=== PATIENT | male | born 1995 | race Caucasian/White ===

== ENCOUNTER 2023-03-09 00:57 | Emergency (ER) | payer MEDICAID, SELFPAY ==
[2023-03-09 00:58] VITALS: BP 144/101; PULSE 82; RESP 18; TEMP 35.7; O2SAT 99; BMI 25.2
--- NOTE | 2023-03-09 01:25 | EX.ED.VIS.HA ---
HPI History of Present Illness Chief Complaint: Headache Informant: patient Onset/Context/Timing Onset: Today and Hours Context: Sudden Timing: Continuous Quality -Headache: Negative for Similar Prior Headaches Current Severity: Moderate Maximum Severity: Moderate Associated Symptoms/Injury Associated Symptoms: Positive for Nausea; Negative for Fever, Vomiting, Sore Throat, Sinus Pressure, Numbness, Tingling, Preceding Aura, Visual Changes, Blurred Vision, Photophobia or Visual Loss Injury - BARRIENTOS: Negative for Direct Trauma, Fall or Assault Narrative Narrative: 27-year-old male no seen past medical or surgical history. Says about an hour ago he had sudden onset of right-sided headache. No family history of intracranial bleeds or brain aneurysms or brain surgery. He denies any trauma. No fever. No sinusitis symptoms. He has no history of migraines or significant headaches. Denies anyone else at home having headaches. He denies any carbon monoxide exposure. Says he has some nausea with a headache. Denies weakness or numbness of his upper or lower extremities. Prior similar symptoms: No Recent Illness/Hospitalization: No PFSH PFSH Medical History no medical history no medical history Allergy/AdvReac Type Severity Reaction Status Date / Time No Known Allergies Allergy Verified 03/09/23 00:58 Surgical History no surgical history Social History Smoking Status: Current every day smoker tobacco type: cigarettes ROS ROS ED ROS Narrative Headache. Nausea. Review of Systems ROS Unobtainable: Denies due to encephalopathy Constitutional Constitutional ED: Denies chills or fever(s) Eyes Eyes: Denies blurry vision ENT ENT ED: Denies ear pain, rhinorrhea or sore throat Cardiovascular Cardiovascular: Denies chest pain or palpitations Respiratory/Chest Respiratory/Chest: Denies cough, dyspnea or dyspnea on exertion Gastrointestinal Gastrointestinal: Reports nausea; Denies abdominal pain, constipation, diarrhea, melena or vomiting Genitourinary Genitourinary ED: Denies dysuria or hematuria Musculoskeletal Musculoskeletal: Denies arthralgias Integumentary Denies abscess Neurologic Neurologic: Reports headache(s); Denies paresthesias or weakness Psychiatric Psychiatric: Denies anxiety Endocrine Endocrinology: Denies polydipsia, polyphagia or polyuria Hematologic/Lymphatic Hematologic/Lymphatic: Denies easy bleeding, easy bruising or lymphadenopathy Allergic/Immunologic Allergic/Immunologic ED: Denies tongue swelling or urticaria EXAM Physical Exam Narrative Exam Narrative: 26-year-old male right-sided headache. Normal exam. Nontender. No signs of trauma. Vital signs are stable afebrile. H EENT exam unremarkable. Pupils are reactive light. Facial droop. Normal speech. He does have a decayed right lower molar. There is no gingivitis. No abscess. Neck nontender. No meningismus. No lymphadenopathy. Lungs clear to auscultation. Heart regular rhythm no murmur. Rate about 80. Chest wall and ribs nontender. Abdomen soft nontender. Back nontender. Neurologically is awake alert no focal motor deficits. Normal rfid engineer strength. Normal fingertip to nose. Normal dorsi plantarflexion. NIH score is 0. Const Vital Signs: 03/09/23 00:58 Temperature 96.3 F L Temperature Source Temporal Pulse Rate 82 Respiratory Rate 18 Blood Pressure 144/101 H Blood Pressure Mean 115 Pulse Ox 99 Oxygen Delivery Method Room Air Positive well nourished and well developed; Negative for obese, cachectic, contractures or unkempt General Appearance ED: well developed and NAD; Negative for unkempt, cachectic, contractures, cyanotic or diaphoretic Nutritional Appearance: Negative for cachectic or obese HEENT Reports normocephalic and moist mucous membranes; Denies dry mucous membranes atraumatic; Negative for trauma, tenderness, temporal artery tenderness or vesicular rash Face and Sinus: Negative for sinus tenderness Mouth ED: No dry mucous membranes Mouth: No dry mucous membranes Eyes PERRL and EOMs intact bilaterally General Eye ED: Negative for pale conjunctiva or scleral icterus Neck no lymphadenopathy, supple, no meningeal signs and no JVD General: Negative for tenderness Resp normal respiratory effort and clear to auscultation bilaterally Effort and Inspection: Negative for retractions Auscultation: Negative for rales, rhonchi or wheezes Cardio regular rate, regular rhythm, S1 normal heart sound, S2 normal heart sound and no murmurs Rate: Negative for bradycardia or tachycardic Rhythm: Negative for abnormal rhythm GI non-tender and non-distended Auscultation: normoactive bowel sounds Palpation: soft; Negative for firm, tender, guarding or mass Back/Spine no CVA tenderness General Back: Negative for CVA tenderness Cervical Spine: Negative for cervical spine tenderness Thoracic Spine / Upper Back: Negative for thoracic spinal tenderness Lumbar Spine / Lower Back: Negative for lumbar spinal tenderness Extremity normal to inspection and full ROM General Extremety ED: Negative for edema, tenderness or other findings General Extremity: Negative for edema or other findings Neuro oriented x3, CN's II-XII intact bilaterally and no sensory deficits noted Sensorium / Orientation: awake, alert, oriented to person, oriented to place and oriented to time; Negative for orientation impaired, lethargic or stuporous Coordination / Balance: [id number] test normal Speech: speech normal Gait (Neuro): Negative for normal gait Motor Exam: strength 5/5 throughout Comatose: Negative for other Psych mental status grossly normal Appearance: Negative for unkempt Attitude: No agitated Mood & Affect: Negative for depressed, anxious, tearful or other Skin General Skin Exam: elasticity normal Lesions: no lesions Rashes: no rashes Trauma: Negative for abrasion MDM MDM MDM Narrative Medical decision making narrative: 27-year-old male right-sided headache. CAT scan and IV Toradol, fluids, Benadryl and Zofran. He is given normal neurologic exam. Repeat exam at 2:40 AM patient's headache is resolving. He is feeling better. His neurologic exam remains normal. He and I went over his CAT scan results. He is comfortable being discharged home. There is a female in the room skin taking him home. Tylenol Motrin for pain. Return if feeling worse. History & Record Review Discussion w/independent historian: Patient Additional record(s) reviewed:: Prior inpatient record, Prior outpatient record, Prior ED visit and Prior labs Radiography Diagnostic Testing: Clinical Impression(s) from Imaging Studies Brain CT 03/09/23 01:52 IMPRESSION: Negative head/brain CT without intravenous contrast. Electronically Signed: Christopher Aparicio MD at 2:13 EST , Discharge Plan Triage Chief Complaint: Headache ED Provider: Jeffrey Villalobos Dx/Rx/DC Orders Clinical Impression: Headache Instructions: ED Headache Unspecified Primary Care Provider: Care Physician,No Primary Referrals: Robbin Barrera MD [Med Staff - Warehouse Representative] - 3-5 Days if not improving Care Physician,No Primary [Primary Care Provider] - Activity Restrictions/Additional Instructions: Plenty of fluids and rest. Motrin and Tylenol for pain. Follow-up if not improving or return Emergency Department if feeling worse. Disposition Disposition: Home, Self Care
[2023-03-09] MEDS: DiphenhydrAMINE 50 MG/ML Syringe 25 MG IV (01:35)
[2023-03-09] MEDS: Ketorolac 30 MG/ML Syringe IV (01:35)
[2023-03-09] MEDS: 0.9% Normal Saline (1000mL) 1,000 ML 1000 ML IV (01:35)
[2023-03-09] MEDS: Ondansetron 4 MG/2 ML Vial IV (01:36)
--- NOTE | 2023-03-09 01:52 | CT_ITS ---
EXAM: CT HEAD WITHOUT INTRAVENOUS CONTRAST CLINICAL INDICATION: headache TECHNIQUE: Multiple axial images were obtained of the head without intravenous contrast. This CT exam was performed using one or more of the following dose reduction techniques: automated exposure control, adjustment of the mA and/or kV according to patient size, and/or use of iterative reconstruction technique. RADIATION DOSE: CTDIvol = 44.99 mGy, DLP = 846.73 mGy-cm COMPARISON: No relevant prior studies available. FINDINGS: BRAIN AND EXTRA-AXIAL SPACES: Unremarkable. No intra- or extra-axial hemorrhage. No evidence of acute infarct. No intracranial mass or mass effect. There is preservation of the [place]/white matter interface. Posterior fossa structures are unremarkable. Ventricles are appropriate for age. No hydrocephalus. Basal cisterns are patent. BONES/JOINTS: Unremarkable. No discrete lytic or blastic abnormalities. SINUSES: Unremarkable as visualized. Clear. MASTOID AIR CELLS: Unremarkable. Clear. ORBITS: Visualized globes, extraocular muscles, optic nerves and retrobulbar fat appear unremarkable. CT/Brain/Head without Contrast IMPRESSION: Negative head/brain CT without intravenous contrast. Electronically Signed: Christopher Aparicio MD at 2:13 EST ,
[2023-03-09 02:51] VITALS: BP 129/67; PULSE 67; RESP 16; TEMP 36.8; O2SAT 98
== END 2023-03-09 02:57 | disposition home or self-care (01) ==
PROVIDERS: Emergency Provider Emergency Medicine; Visit Provider Emergency Medicine
DX: R51.9 Headache, unspecified (principal); R11.0 Nausea; F17.210 Nicotine dependence, cigarettes, uncomplicated
CPT/HCPCS: 70450; 96361; 96374; 96375; 99283; J7030; J2405

== ENCOUNTER 2023-07-21 20:45 | Emergency (ER) | payer MEDICAID, SELFPAY ==
[2023-07-21 20:46] VITALS: BP 143/103; PULSE 112; RESP 18; TEMP 36.1; O2SAT 98; BMI 22.4
--- NOTE | 2023-07-21 21:05 | EDS_ITS ---
HPI <CARLYLE Barfield - Last Filed: 07/21/23 21:43> History of Present Illness Chief Complaint: Upper Extremity Injury Narrative Narrative: 28-year-old male with no significant medical history presents to the ER emergency department with complaints of right hand pain. Patient states last evening he upset and punched a car window. Did not break. However he did have pain to the right hand. He states today is worsening when he tries to open and close his hand. He has swelling to the dorsal aspect is here for evaluation PFSH <CARLYLE Barfield - Last Filed: 07/21/23 21:43> [facility] Medical History no medical history Home Medications ?Medication ?Instructions ?Recorded ?Last Taken ?Type loratadine 10 mg tablet 10 mg PO DAILY 07/21/23 Unknown History (Allerclear) Allergy/AdvReac Type Severity Reaction Status Date / Time No Known Allergies Allergy Verified 07/21/23 20:46 Surgical History no surgical history Social History Smoking Status: Current every day smoker tobacco type: cigarettes ROS <CARLYLE Barfield - Last Filed: 07/21/23 21:43> ROS ED ROS Narrative Constitutional: Negative for fever, chills, weight loss, weakness Eyes: Negative for vision loss, vision change, double vision ENT: Negative for any sore throat, ear pain, congestion Cardiovascular: Negative for any chest pain, tightness, palpitations Respiratory: Negative for any cough, sputum production, hemoptysis, dyspnea, dyspnea on exertion, orthopnea Gastrointestinal: Negative for any abdominal pain, nausea, vomiting, diarrhea, constipation, blood in stool, blood in vomit : Negative for any urinary frequency, dysuria, retention, blood in urine Muscle skeletal: Negative for any neck pain, back pain. Pain in the right hand Neurological: Negative for any headache, syncope, dizziness Skin: Negative for any rashes, itching, abrasions, lacerations Psychiatric: Negative for any depression, anxiety, stress, suicidal ideation, homicidal ideation Hematologic: Negative for any excessive bruising, easy bleeding EXAM <CARLYLE Barfield - Last Filed: 07/21/23 21:43> Physical Exam Narrative Exam Narrative: Vital signs reviewed. Extremities: Patient has pain on palpation of the dorsal aspect the right hand mostly around the proximal 3 4 and 5 metacarpals. He is able to open close his hand, +2 radial pulse. No obvious deformity, no laceration positive for ecchymosis slight edema Neuro: Cranial nerves II through XII intact, no focal neurological deficits. Skin: Clean dry and intact with no rash, purpura, petechiae, vesicles or pustules. Backs/flank: No CVA tenderness, no midline spinal tenderness, no deformity. Psych: Normal mood and affect. No SI, HI or acute psychosis. Const Vital Signs: 07/21/23 20:46 Temperature 97 F L Temperature Source Temporal Pulse Rate 112 H Respiratory Rate 18 Blood Pressure 143/103 H Blood Pressure Mean 116 Pulse Ox 98 Oxygen Delivery Method Room Air [facility] <CARLYLE Barfield - Last Filed: 07/21/23 21:43> [facility] Treatment and Re-Evaluation Narrative: Differential diagnosis includes however is not limited to: Distal radial fracture, distal ulnar fracture, hand contusion, hand fracture, boxer's fracture Patient appears to be in no obvious distress vital signs are stable. Patient appears nontoxic, presenting emerged part with complaints of right hand pain after punching a car window yesterday. He will see the x-rays of the right hand. All radiologic examinations were read, reviewed by the emergency department attending. From these reads, a plan of care will be put in place. Patient's x-ray of the right hand/wrist was negative. Noted to be osseous abnormality. Patient was placed in a cock-up wrist splint. Instructed to ice, elevate. Patient will be given a PCP to follow-up with. All questions answered stable for discharge <Paulino Reid MD - Last Filed: 07/21/23 21:49> [facility] Narrative Medical decision making narrative: Dr. Reid: I have personally performed a face to face assessment of the patient and have reviewed the RUPESH Note. I performed a substantive portion of the visit including all aspects of the following. My [place] findings include: History is right hand/wrist pain after punching a car yesterday evening. Pain worse with movement Exam is afebrile. Vital signs noted. Mild tenderness to palpation proximal hand over carpal bones, no distal radius fracture, palpable radial pulse. Good capillary refill. Able to oppose thumb. Medical Decision Making: Check x-rays. X-rays of right hand interpreted by myself independently shows no evidence of acute fracture. I reviewed the radiology report which confirms my independent interpretation. Patient will be placed in a cock up wrist splint continue ice and elevation at home and [id number] medications for analgesia. Follow-up primary care. Disposition is discharged home in stable condition. Other additions or changes: [None] Radiography X-Ray: Read by ED Physician and Read by Radiologist Discharge Plan Triage Chief Complaint: Upper Extremity Injury ED Midlevel Provider: Drew Begum ED Provider: Paulino Reid Dx/Rx/DC Orders Clinical Impression: Contusion of hand, Contusion of right wrist Instructions: ED Hand Contusion Prescriptions: No Action loratadine [Allerclear] 10 mg tablet 10 mg PO DAILY Primary Care Provider: Care Physician,No Primary Referrals: Sterling Obrien MD [Med Staff - Verifier Operator] - Care Physician,No Primary [Primary Care Provider] - Activity Restrictions/Additional Instructions: Wear the splint, ice and elevate Print Language: [place] Disposition Disposition: Home, Self Care
--- NOTE | 2023-07-21 21:05 | RAD_ITS ---
EXAM: XR RIGHT HAND COMPLETE, 3 OR MORE VIEWS CLINICAL INDICATION: HAND INJURY TECHNIQUE: Frontal, lateral and oblique views of the right hand. COMPARISON: No relevant prior studies available. FINDINGS: BONES/JOINTS: Unremarkable. No acute fracture. No subluxation. Normal alignment. Preservation of the joint space. No sclerotic or destructive changes observed. SOFT TISSUES: Unremarkable. No soft tissue swelling or gas. No radiopaque foreign body. RAD/Hand Min 3 Views IMPRESSION: Negative right hand x-rays. Electronically Signed: Christopher Reagan MD at 21:35 EDT ,
[2023-07-21 21:53] VITALS: BP 128/74; PULSE 94; RESP 18; TEMP 36.1; O2SAT 98
== END 2023-07-21 21:54 | disposition home or self-care (01) ==
PROVIDERS: Emergency Provider Emergency Medicine; Visit Provider Emergency Medicine
DX: S60.211A Contusion of right wrist, initial encounter (principal); F17.210 Nicotine dependence, cigarettes, uncomplicated; S60.221A Contusion of right hand, initial encounter; W22.09XA Striking against other stationary object, initial encounter; Y93.89 Activity, other specified
CPT/HCPCS: 73130; 99283

== ENCOUNTER 2024-06-21 12:00 | Emergency (ER) | payer SELFPAY ==
[2024-06-21 12:01] VITALS: BP 128/91; PULSE 91; RESP 19; TEMP 36.5; O2SAT 97; BMI 25.4
[2024-06-21 12:04] VITALS: BP 128/91; PULSE 91; RESP 19; TEMP 36.5; O2SAT 97
--- NOTE | 2024-06-21 13:00 | ED.VIS.DYS ---
HPI History of Present Illness Chief Complaint: Cough PFSH PFS Medical History no medical history Home Medications ?Medication ?Instructions ?Recorded ?Last Taken ?Type loratadine 10 mg tablet 10 mg PO DAILY 07/21/23 Unknown History (Allerclear) Allergy/AdvReac Type Severity Reaction Status Date / Time No Known Allergies Allergy Verified 06/21/24 12:01 Surgical History no surgical history Social History Smoking Status: Current every day smoker tobacco type: cigarettes EXAM Physical Exam Const Vital Signs: 06/21/24 12:01 06/21/24 12:04 06/21/24 13:07 Temperature 97.7 F L 97.7 F L Temperature Source Oral Temporal Pulse Rate 91 91 Respiratory Rate 19 H 19 H Respiratory Effort Normal Respiratory Depth Normal Respiratory Pattern Normal Blood Pressure 128/91 H 128/91 H Blood Pressure Mean 103 103 Pulse Ox 97 97 Oxygen Delivery Method Room Air Room Air MDM MDM MDM Narrative Medical decision making narrative: HISTORY OF PRESENT ILLNESS: Chief complaint: Cough 28-year-old otherwise healthy male presents with cough. Notes 4 days of cough and losing his voice. Notes recent sick contacts. Notes cough, productive of yellow sputum. Also notes thick yellow rhinorrhea. Denies headache or neck stiffness. Denies shortness of breath or chest pain. Denies leg swelling. REVIEW OF SYSTEMS: Pertinent positives: Cough Pertinent negatives: As per HPI PHYSICAL EXAM: Nursing triage notes reviewed, Vital signs reviewed Constitutional: please see mdm HENT: MMM, erythema to posterior oropharynx, uvula midline, no tonsillar edema, no pooling secretions, no submandibular edema Eyes: Pupils equal round and reactive to light, Extraocular muscles intact Neck: No stridor, no JVD, full neck ROM Lungs: Clear to auscultation, No wheezing or rales. No increased work of breathing, no conversational dyspnea, no accessory muscle use, no nasal flaring. No respiratory distress noted Heart: Regular rate and rhythm, No murmurs, No rubs and No gallops, 2+ distal pulses (radial, femoral, posterior tibial) in all extremities Abdomen: Soft, there is no tenderness, rigidity, rebound or guarding, no obvious peritoneal signs, no palpable pulsatile abdominal masses, no auscultated abdominal bruit : No CVAT Extremities: No edema Neuro: No new focal neurological deficits, cranial nerves II through XII intact, 5/5 strength in all present extremities. Intact sensation to light touch in all present extremities, 2+ reflexes bilateral patella tendons. Skin: No rash or lesions noted MEDICAL DECISION MAKING: Chief Complaint: please see HPI External records reviewed: Reviewed prior imaging studies Factors affecting care: none Social determinants of health: none History obtained from others: none Consults: none [facility] Narrative: The patient was initially afebrile. Exam with signs of erythematous posterior oropharynx, lungs are clear. I considered the following differential diagnosis: Viral URI, pneumonia, strep throat I obtained a chest x-ray, viral swab and strep PCR. Initially treated with oral Tylenol ibuprofen ALL IMAGES (IF OBTAINED) HAVE BEEN PERSONALLY REVIEWED AND INTERPRETED BY MYSELF. I have personally reviewed the patient's chest x-ray. Chest x-ray is unremarkable for pulmonary edema, pneumothorax, pneumonia or focal cardiopulmonary abnormality. COVID/RSV/flu negative Strep swab negative Patient diagnosed with viral URI. Strict return precautions were discussed The patient and/or family, caregivers express understanding. The patient and/or family, caregivers agrees with the plan. Shared decision making: I will have a discussion with the patient and or visitors regarding risk/benefits of further testing or admission. They will be made aware of of the risk/benefits inherent in this decision they will be given the opportunity to voice understanding. Total critical care time today provided was at least 0 minutes. This excludes separately billable procedures. Critical care time (if documented) is secondary to the patient having high probability of clinically significant/life threatening deterioration in the patient's condition which required my urgent intervention. Impression: 1. Viral URI Dispo: Discharge home This note was generated with [employer] dictation software. It may contain incorrect words, spelling, and punctuation that were not noted in review of the chart prior to signing. Radiography X-Ray: Read by ED Physician Diagnostic Testing: Clinical Impression(s) from Imaging Studies Chest X-Ray 06/21/24 13:47 IMPRESSION: NO ACUTE FINDINGS. Reading Location: [facility] [place] Discharge Plan Triage Chief Complaint: Cough ED Provider: Barry Wellington Dx/Rx/DC Orders Instructions: ED URI, Viral, No Abx (Adult) Prescriptions: No Action loratadine [Allerclear] 10 mg tablet 10 mg PO DAILY Stand Alone Forms: ED Work / School Excuse Primary Care Provider: Care Physician,No Primary Referrals: Care Physician,No Primary [Primary Care Provider] - Activity Restrictions/Additional Instructions: Thank you for trusting us with your care today! Your chest x-ray, COVID/flu/RSV, strep test were negative You are likely send from a viral upper respiratory tract infection causing laryngitis and cough. Please take Tylenol (2 pills, 650 mg), ibuprofen (2 pills, 400 mg) every 6 hours as needed for pain and fever control. Please return to the emergency department if your symptoms change or worsen. Please follow with your primary care physician for further outpatient evaluation and management. Print Language: Indonesian Disposition Disposition: Home, Self Care
[2024-06-21] MEDS: Ibuprofen 200 MG Tablet 400 MG PO (13:22)
[2024-06-21] MEDS: Acetaminophen 325 MG Tablet 650 MG PO (13:22)
--- NOTE | 2024-06-21 13:47 | RAD_ITS ---
PROCEDURE: CHEST PA AND LATERAL 06/21/2024 REASON FOR EXAM: COUGH TECHNIQUE: Frontal and lateral views of the chest. FINDINGS: Hardware: None Heart: The heart size is normal. Mediastinum: The mediastinal contour is unremarkable. Lungs: The lungs are clear. Bones: The bones are unremarkable. RAD/Chest PA and Lateral IMPRESSION: NO ACUTE FINDINGS. Reading Location: [id number]
[2024-06-21 15:02] VITALS: BP 128/91; PULSE 91; RESP 19; TEMP 36.5; O2SAT 97
== END 2024-06-21 15:05 | disposition home or self-care (01) ==
PROVIDERS: Emergency Provider Emergency Medicine; Visit Provider Emergency Medicine
DX: J06.9 Acute upper respiratory infection, unspecified (principal); F17.210 Nicotine dependence, cigarettes, uncomplicated; R05.9 Cough, unspecified
CPT/HCPCS: 71046; 87631; 87651; 99282

== ENCOUNTER 2024-07-02 13:26 | Emergency (ER) | payer SELFPAY ==
[2024-07-02 13:26] VITALS: BP 134/95; PULSE 91; RESP 18; TEMP 37; O2SAT 99; BMI 24.7
== END 2024-07-02 19:00 | disposition left against medical advice (07) ==
LOC: ED 20:33
DX: R21 Rash and other nonspecific skin eruption (principal)

== ENCOUNTER 2024-08-25 18:46 | Emergency (ER) | payer SELFPAY ==
[2024-08-25 18:47] VITALS: BP 138/98; PULSE 103; RESP 18; TEMP 36.9; O2SAT 98; BMI 24.4
[2024-08-25 18:49] VITALS: BP 138/98; PULSE 103; RESP 18; TEMP 36.9; O2SAT 98
--- NOTE | 2024-08-25 19:28 | EDS_ITS ---
HPI History of Present Illness Chief Complaint: Cellulitis Narrative Narrative: Chief complaint and HPI: Rash. 29-year-old male with no significant past medical history presents for evaluation of a rash. 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 States 2 weeks ago he came in contact with poison arias in which he broke out on his bilateral arms and chest. States he usually goes to his PCP but did not. States he developed blisters that broke open. Patient states some of the healing blisters have now became red, erythematous, and purulent. He is concerned of infection. He denies any fever, chills, shortness of breath, chest pain, abdominal pain, nausea, vomiting. Denies being an IV drug abuser. No history of MRSA. Review of systems: See HPI Medications: As listed on the chart Allergies: As listed on the chart PFSH: Per chart Vital signs: As listed on the chart. Reviewed. Physical exam: Gen: A&O x3, NAD Head: Normocephalic, atraumatic Eyes: No sclera icterus, conjunctiva clear ENT: Moist mucous membranes Neck: Full range of motion CV: Mildly tachycardic, no murmurs Resp: Lungs CTA BL, no w/r/c GI: Abd soft, non-distended, non-tender, no r/r/g Musc: Full ROM, no deformity Skin: Patient has multiple excoriations on his anterior chest and bilateral forearms. They are erythematous with scabs. There is an abscess to the left dorsal aspect of his forearm, he has 2 smaller abscesses to the right dorsal aspect of his forearm. Radial pulses +2 bilaterally, compartments soft. No swollen or erythematous joints. There is no lymphatic streaking. Neuro: Alert, oriented, grossly intact, sensation intact Psych: Cooperative, appropriate mood and affect PFSH PFSH Medical History no medical history Allergy/AdvReac Type Severity Reaction Status Date / Time No Known Allergies Allergy Verified 08/25/24 18:49 Family History no significant family his Surgical History no surgical history Social History Smoking Status: Current every day smoker tobacco type: cigarettes EXAM Physical Exam Const Vital Signs: 08/25/24 18:47 08/25/24 18:49 08/25/24 19:49 Temperature 98.5 F 98.5 F 98.3 F Temperature Source Oral Oral Oral Pulse Rate 103 H 103 H 69 Respiratory Rate 18 18 14 Blood Pressure 138/98 H 138/98 H 134/77 H Blood Pressure Mean 111 111 96 Pulse Ox 98 98 98 Oxygen Delivery Method Room Air Room Air Room Air 08/25/24 20:00 08/25/24 21:00 Temperature 98.5 F 98.5 F Temperature Source Oral Oral Pulse Rate 88 78 Respiratory Rate 14 16 Blood Pressure 132/80 H 139/91 H Blood Pressure Mean 97 107 Pulse Ox 100 100 Oxygen Delivery Method Room Air Room Air MDM MDM MDM Narrative Medical decision making narrative: 29-year-old male with no significant past medical history presents for evaluation of a rash. 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 States 2 weeks ago he came in contact with poison arias in which he broke out on his bilateral arms and chest. States he developed blisters that broke open. Some of the blisters have now became infected. He denies being IV drug abuser. No history of MRSA. He denies any systemic symptoms. On presentation, patient in no acute distress however he is mildly tachycardic. On physical exam he has multiple excoriations on his anterior chest and bilateral forearms. Likely from his previous poison arias. They are erythematous with scabs. There is a abscess to the left dorsal aspect of his forearm as well as 2 smaller abscesses to the right dorsal accepted of his forearm. These will need to be I&D. Given his multiple abscesses with tachycardia, will perform basic labs and blood culture. Differential diagnosis includes but is not limited to abscess, cellulitis, bacteremia. CBC with leukocytosis of 13.4. No anemia. BMP unremarkable. Lactic acid unremarkable. Blood culture was sent. On reevaluation, patient's vitals have improved. Patient will warrant incision and drainage of his abscesses. He tolerated this well. Will place him on Keflex and Bactrim. First dose is given here. Patient was told to follow-up closely with his primary care physician. Return back to the ED if symptoms change or worsen. He was informed that it is okay to shower 24 hours. No lakes, reynolds, hot tubs, oceans until fully healed. He confirmed understanding the plan. Patient stable to discharge home. Incision and Drainage Indication: 3 x 3 cm left forearm abscess, 1 x 1 cm right forearm abscess, 0.5 cm right forearm abscess Consent: Risks, benefits, and alternatives discussed with patient and consent obtained Procedure: The areas were prepared and draped in the usual sterile manner. The sites were anesthetized with 1% lidocaine with epinephrine. A cruciate incision was made in the skin of each abscess and purulent material was expressed. I did culture the larger abscess. The abscesses was explored thoroughly, and sequestered pockets were opened. The abscess pockets were irrigated. Bleeding was minimal. The patient tolerated the procedure well without complications. Packing: None Follow-Up: Standard post-procedure care was explained and return precautions were given Impression: 1. Left forearm abscess, status post incision and drainage 2. Right forearm abscesses x 2, status post incision and drainage 3. Cellulitis from poison arias Lab Data Labs: Laboratory Results - last 24 hr 08/25/24 19:35 WBC 13.4 H RBC 5.28 Hgb 15.6 Hct 45.7 MCV 86.6 MCH 29.5 MCHC 34.1 RDW Std Deviation 38.3 RDW Coeff of Jonathon 12.1 Plt Count 310 MPV 9.6 Immature Gran % (Auto) 0.400 Neut % (Auto) 71.3 H Lymph % (Auto) 19.3 [place] % (Auto) 6.4 Eos % (Auto) 2.1 Baso % (Auto) 0.5 Absolute Neuts (auto) 9.6 H Absolute Lymphs (auto) 2.60 Nucleated RBC % 0 Sodium 139 Potassium 3.9 Chloride 102 Carbon Dioxide 24.8 Anion Gap 12 BUN 8 Creatinine 0.92 Estim Creat Clear Calc 131.21 Est GFR (MDRD) Non-Af 117 BUN/Creatinine Ratio 8.7 L Glucose 89 Lactic Acid 1.5 Calcium 9.2 Discharge Plan Triage Chief Complaint: Cellulitis ED Provider: Eugenio Pacheco Dx/Rx/DC Orders Primary Care Provider: Care Physician,No Primary Referrals: Care Physician,No Primary [Primary Care Provider] - Print Language: [place]
[2024-08-25] MEDS: Lidocaine 1% /Epi 1:100 (20ml) 20 ML Vial INFILT (19:36)
[2024-08-25 19:49] VITALS: BP 134/77; PULSE 69; RESP 14; TEMP 36.8; O2SAT 98
[2024-08-25 19:51] LABS: Hematocrit 45.7 % (40-54); Hemoglobin 15.6 g/dL (13.0-16.5); Immature Granulocytes Count 0.050 X10^3/uL (0.0-0.0); Mean Corp Hgb Conc 34.1 g/dL (32-36); Mean Corpuscular Volume 86.6 fL (80-94); Mean Platelet Vol. 9.6 fl (6.2-12.0); NRBC Flagged by Analyzer 0 % (0-5); Platelet Count 310 K/mm3 (150-450); RBC Distribution Width CV 12.1 % (11.6-14.6); RBC Distribution Width SD 38.3 fl (35.1-43.9); Red Blood Count 5.28 M/mm3 (4.6-6.2); White Blood Count 13.4 K/mm3 (4.4-11.0)
[2024-08-25 20:00] VITALS: BP 132/80; PULSE 88; RESP 14; TEMP 36.9; O2SAT 100
[2024-08-25 20:33] LABS: Anion Gap 12 (5-15); BUN 8 mg/dL (4-19); BUN/Creat Ratio 8.7 RATIO (10-20); Calcium,Total 9.2 mg/dL (7.6-11.0); Carbon Dioxide 24.8 mmol/L (21.0-32.0); Chloride 102 mmol/L (98-108); Estimated Creatinine Clearance 131.21 ml/min (50-250); Glucose 89 mg/dL (70-99); Potassium 3.9 mmol/L (3.3-5.1)
[2024-08-25 21:00] VITALS: BP 139/91; PULSE 78; RESP 16; TEMP 36.9; O2SAT 100
[2024-08-25 21:31] VITALS: BP 147/92; PULSE 76; RESP 16; TEMP 37.1; O2SAT 100
[2024-08-25] MEDS: Smz/Tmp Ds Tablet 1 TABLET PO (21:34)
== END 2024-08-25 21:40 | disposition home or self-care (01) ==
PROVIDERS: Emergency Provider Surgery; Visit Provider Surgery
DX: L02.413 Cutaneous abscess of right upper limb (principal); L02.414 Cutaneous abscess of left upper limb; L03.90 Cellulitis, unspecified; F17.210 Nicotine dependence, cigarettes, uncomplicated
CPT/HCPCS: 10060 ×2; 80048; 83605; 85025; 87040; 87070; 87077; 87186; 87205; 99283; A4216